=== PATIENT | female | born 1960 | race African-American/Black ===

== ENCOUNTER 2018-03-17 07:43 | Observation (INO) ==
[2018-03-17] MEDS ORDERED: Aspirin 325 MG Tablet PO ONE (08:06)
--- NOTE | 2018-03-17 08:11 | ED ---
HPI General Chief Complaint: Chest Pain Stated Complaint: chest pain/SOB Time Seen by Provider: 03/17/18 08:00 Source: patient Mode of arrival: ambulatory Limitations: no limitations History of Present Illness HPI narrative: 57-year-old female notes chest pain and higher blood pressure than usual over the past couple of days. She states she is also been fighting a cold and been using Mucinex for nasal congestion. She states she currently does not have a heart doctor. She states around 2013 she had a stress test and her last heart catheterization was probably about 10 years ago. She states her diabetes has been well controlled with her last sugar yesterday in the 130s. complaint: chest pain Complete Quality Measures for STEMI Alert Patients STEMI Alert: No Onset (ago): day(s) Duration: intermittent Pain location: left chest Severity: moderate Quality: aching Pain radiation: none Relieving factors: nothing Exacerbating factors: nothing Context: recent illness (congestion) Related Data Home Medications Medication Instructions Recorded Confirmed amlodipine 10 mg PO DAILY 03/17/18 03/17/18 aspirin [Aspir-81] 81 mg PO DAILY 03/17/18 03/17/18 carvedilol 25 mg PO BID 03/17/18 03/17/18 clonidine HCl 0.2 mg PO TID 03/17/18 03/17/18 metformin 500 mg PO DAILY 03/17/18 03/17/18 Allergies Allergy/AdvReac Type Severity Reaction Status Date / Time adenosine Allergy Severe unknown Verified 03/17/18 07:54 codeine Allergy Severe Nausea/Vomi Verified 03/17/18 07:54 ting enalaprilat Allergy Severe ANGIOEDEMA Verified 03/17/18 07:54 propranolol Allergy Severe RASH Verified 03/17/18 07:54 Review of Systems ROS: all other systems reviewed are negative [facility] Medical History Medical History Anxiety (Acute) Diabetes (Acute) HTN (hypertension) (Acute) Hiatal hernia (Acute) Surgical History Surgical History H/O carpal tunnel repair (Acute) H/O section (Acute) History of cardiac cath (Acute) Social History Social History Substance History: Active Abuse Second Hand Smoke Exposure: Yes Smoking Status: Former smoker Tobacco Type: Cigarettes How Often Do You Have a Drink Containing Alcohol: 2 to 3 times a week Recent Travel in [facility] within the Last 8 Weeks: No Recent Out of Country Travel within the Last 8 Weeks: No Substance Abuse Detail Marijuana: Substance Use Status: Active Route Used Substance Abuse: Inhalation Reason for Use: Get High Immunization History Tetanus Immunization: Unsure Hx Influenza Vaccine This Season: No Exam Narrative Exam Narrative: GENERAL: 57 y/o female in no apparent distress SKIN: Focused skin assessment warm/dry. HEAD: Atraumatic. Normocephalic. EYES: Pupils equal and round. No scleral icterus. No injection or drainage. ENT: No nasal bleeding or discharge. Mucous membranes pink and moist. Rhinorrhea noted NECK: Trachea midline. No JVD. CARDIOVASCULAR: Regular rate and rhythm. No murmur appreciated. RESPIRATORY: No accessory muscle use. Clear to auscultation. Breath sounds equal bilaterally. GASTROINTESTINAL: Abdomen soft, non-tender, nondistended. MUSCULOSKELETAL: No obvious deformities. No clubbing. No cyanosis. NEUROLOGICAL: Awake and alert. Motor grossly within normal limits. Normal speech. PSYCHIATRIC: Appropriate mood and affect; insight and judgment normal. Course Hospital Course: patient updated and agrees to [facility] observation Initial Documented Vital Signs Temperature 97.7 F 03/17/18 07:47 Pulse Rate 88 03/17/18 07:47 Respiratory Rate 16 03/17/18 07:47 Blood Pressure 212/101 H 03/17/18 07:47 Pulse Oximetry 98 03/17/18 07:47 Last Documented Vital Signs Temperature 97.7 F 03/17/18 07:47 Pulse Rate 58 L 03/17/18 09:46 Respiratory Rate 18 03/17/18 09:46 Blood Pressure 178/101 H 03/17/18 09:46 Pulse Oximetry 100 03/17/18 09:46 Medical Decision Making [facility] Narrative Medical decision making narrative: Will check blood work, chest x-ray, EKG and dose with aspirin nitroglycerin and reevaluate given risk factors Medical Screen Exam Complete: Yes Emergency Medical Condition: Yes Differential Diagnosis Differential Diagnosis: Musculoskeletal, pneumonia, atypical cardiac Lab Data Lab results reviewed: Yes I reviewed the patient's lab results. Result diagrams: 03/17/18 08:08 03/17/18 08:08 Lab Results 03/17/18 03/17/18 03/17/18 Range/Units 08:08 08:08 08:08 WBC 9.1 (4.0-11.0) th/mm3 RBC 5.68 H (4.00-5.30) mil/mm3 Hgb 15.2 (11.6-15.3) gm/dL Hct 45.3 (35.0-46.0) % MCV 79.7 L (80.0-100.0) fL MCH 26.7 L (27.0-34.0) pg MCHC 33.5 (32.0-36.0) % RDW 13.5 (11.6-17.2) % Plt Count 227 (150-450) th/mm3 MPV 10.3 (7.0-11.0) fL Neut % (Auto) 55.6 (16.0-70.0) % Lymph % (Auto) 30.6 (9.0-44.0) % [place] % (Auto) 10.4 H (0.0-8.0) % Eos % (Auto) 2.7 (0.0-4.0) % Baso % (Auto) 0.7 (0.0-2.0) % Neut # (Auto) 5.0 (1.8-7.7) th/mm3 Lymph # (Auto) 2.8 (1.0-4.8) th/mm3 [place] # (Auto) 0.9 (0.0-0.9) th/mm3 Eos # (Auto) 0.2 (0.0-0.4) th/mm3 Baso # (Auto) 0.1 (0.0-0.2) th/mm3 WBC Differential . Differential Comment Auto diff final PT 10.7 (9.8-11.6) sec INR 1.1 Ratio APTT 27.1 (24.3-30.1) sec Sodium 139 (136-145) meq/L Potassium 3.4 L (3.5-5.1) meq/L Chloride 104 (98-107) meq/L Carbon Dioxide 26.6 (21.0-32.0) meq/L Anion Gap 8 (5-15) meq/L BUN 9 (7-18) mg/dL Creatinine 0.62 (0.50-1.00) mg/dL Estimated GFR Greater than 89 (>89) mL/min Random Glucose 131 H (74-106) mg/dL Calcium 9.2 (8.5-10.1) mg/dL Magnesium 1.8 (1.5-2.5) mg/dL Total Bilirubin 0.4 (0.2-1.0) mg/dL AST 18 (15-37) U/L ALT 23 (10-53) U/L Alkaline Phosphatase 99 (45-117) U/L Total Creatine Kinase 89 (26-192) U/L Troponin I Less than 0.02 L (0.02-0.05) ng/mL Total Protein 8.1 (6.4-8.2) g/dL Albumin 3.7 (3.4-5.0) g/dL Imaging Data Attestation: I personally reviewed and interpreted this imaging study as follows : Radiologist's impression: Chest X-Ray 03/17/18 08:00 CONCLUSION: No acute cardiopulmonary abnormality is identified. Discharge Plan Discharge Disposition Patient Disposition: 30 Still Patient Discharge Condition Condition: Stable Discharge Details Diagnosis: Chest pain Physicians Team ED Provider: Gabi Murrell Primary Care Provider: Reji Ng Attending Provider: Jj Castellon Discharge Interventions Interventions: Vital Signs Last Done: 03/17/18 07:49 Status ED Status: Admitted Observation Patient
[2018-03-17 08:32] LABS: Baso # (Auto) 0.1 th/mm3 (0.0-0.2); Baso % (Auto) 0.7 % (0.0-2.0); Eos # (Auto) 0.2 th/mm3 (0.0-0.4); Eos % (Auto) 2.7 % (0.0-4.0); Hematocrit 45.3 % (35.0-46.0); Hemoglobin 15.2 gm/dL (11.6-15.3); Lymph # (Auto) 2.8 th/mm3 (1.0-4.8); Lymph % (Auto) 30.6 % (9.0-44.0); Mean Corpuscular HGB Conc 33.5 % (32.0-36.0); Mean Corpuscular Hemoglobin 26.7 pg (27.0-34.0); Mean Corpuscular Volume 79.7 fL (80.0-100.0); Mean Platelet Volume 10.3 fL (7.0-11.0); Mono # (Auto) 0.9 th/mm3 (0.0-0.9); Mono % (Auto) 10.4 % (0.0-8.0); Neut % (Auto) 55.6 % (16.0-70.0); Platelet Count 227 th/mm3 (150-450); Red Blood Count 5.68 mil/mm3 (4.00-5.30); Red Cell Distribution Width 13.5 % (11.6-17.2); White Blood Count 9.1 th/mm3 (4.0-11.0)
[2018-03-17 08:41] LABS: Activated Partial Thrombo Time 27.1 sec (24.3-30.1); INR 1.1 Ratio; Prothrombin Time 10.7 sec (9.8-11.6)
--- NOTE | 2018-03-17 08:46 | XR ---
EXAM DATE: 03/17/2018 8:32 AM EDT AGE/SEX: 57 years / Female INDICATIONS: Chest pain. Patient complains of headache, cough, and congestion. Low grade fever. CLINICAL DATA: This is the patient's initial encounter. Patient reports that signs and symptoms have been present for 4 - 6 days and indicates a pain score of 0/10. MEDICAL/SURGICAL HISTORY: None. None. COMPARISON: [facility] [place], CHEST SINGLE AP, 12/21/2014. . FINDINGS: Portable AP view of the chest demonstrates a normal-sized cardiac silhouette with calcification of th e aorta. EKG lines overlie the patient. Lungs are underinflated. No effusion, consolidation, or pneum othorax is identified. The bones and soft tissues demonstrate no acute abnormality. CONCLUSION: No acute cardiopulmonary abnormality is identified. Electronically signed by: Monico Sanchez MD 03/17/2018 8:45 AM EDT
[2018-03-17 08:56] LABS: Albumin 3.7 g/dL (3.4-5.0); Anion Gap 8 meq/L (5-15); Aspartate Aminotransferase 18 U/L (15-37); Blood Urea Nitrogen 9 mg/dL (7-18); Calcium 9.2 mg/dL (8.5-10.1); Carbon Dioxide 26.6 meq/L (21.0-32.0); Chloride 104 meq/L (98-107); Glomerular Filtration Rate Greater Than 89 mL/min (>89); Glucose,Random 131 mg/dL (74-106); Potassium 3.4 meq/L (3.5-5.1); Sodium 139 meq/L (136-145)
[2018-03-17 08:57] LABS: Alanine Aminotransferase 23 U/L (10-53)
[2018-03-17 09:01] LABS: Alkaline Phosphatase 99 U/L (45-117); Total Protein 8.1 g/dL (6.4-8.2)
[2018-03-17 09:04] LABS: Creatine Kinase 89 U/L (26-192)
[2018-03-17 09:17] LABS: Magnesium 1.8 mg/dL (1.5-2.5)
[2018-03-17] MEDS ORDERED: ALPRAZolam 0.25 MG Tablet PO PRN (11:12)
--- NOTE | 2018-03-17 11:24 | P.HPCA ---
History of Present Illness Primary Care Physician: Reji Ng MD Chief Complaint: Chest pain and high blood pressure History of Present Illness: This is a 57-year-old female with history of hypertension, hyperlipidemia, diabetes that presents to ED with complaint of chest pain and high blood pressure. Patient states that she has had a yellowish color productive cough for 4-5 days and began taking decongestants. She thinks that made her blood pressure higher. States hypertension was controlled with the current medications prior to starting Mucinex. States that she did not take her blood pressure medicines this morning. She believes she may have had a fever at one point. She describes a discomfort in her chest as a left-sided ache that lasts 5-10 minutes and usually brought on with certain movements or coughing. Denies associated shortness of breath, nausea, or diaphoresis. Denies sick contacts. Denies history of CAD. She has had stress test in the past, most recently being in 2015 which was suboptimal. Lexiscan was recommended however patient declined. Patient quit smoking cigarettes 10 years ago but prior that she smoked three- quarter pack a day for 20 years. Has occasional alcohol. Uses marijuana occasionally. States that her father had a CABG in his 70s. - Diagnosis (1) Chest pain (2) Hypertension (3) Diabetes (4) Hyperlipidemia Review of Systems General: Patient denies chills and recent travel. When of subjective fever. HEENT: Patient denies headache, sore throat, difficulty swallowing. Cardiovascular: Has the chest discomfort as mentioned above. Denies sensation of heart beating rapidly or irregularly. No syncope. Denies diaphoresis. Respiratory: Patient is a yellowish color productive cough. Denies shortness of breath or inspirational chest discomfort. Denies wheezing or hemoptysis. GI: Patient denies nausea, vomiting, diarrhea, abdominal pain, bloody stools. Musculoskeletal: Patient denies joint pain or edema. Denies calf pain or edema. Neurovascular: Patient denies numbness, tingling, weakness in extremities. Denies headache. Endocrine: Denies polyuria and polydipsia. Hematologic: Denies easy bruising. Skin: Denies rash or itching. PMFSH - History History Provided By: Patient - Medical History Medical History: Medical History (Last Reviewed 03/17/18 @ 08:08 by Gabi Murrell MD) Anxiety Diabetes HTN (hypertension) Hiatal hernia - Surgical History Surgical History: Surgical History (Last Updated 03/17/18 @ 08:15 by Ivelisse Butler RN) H/O carpal tunnel repair H/O section History of cardiac cath - Tobacco History Second Hand Smoke Exposure: Yes Smoking Status: Former smoker Tobacco Type: Cigarettes - Alcohol History How Often Do You Have a Drink Containing Alcohol: 2 to 3 times a week - Substance Use History Substance History: Active Abuse - Substance Use Type Marijuana Status: Active Route Used: Inhalation Reason for Use: Get High - Travel History Recent Travel in the [place] Within the Last 8 Weeks: No Recent Travel Out of the Country Within the Last 8 Weeks: No - Immunization History Tetanus Immunization: Unsure Hx Influenza Vaccine This Season: No Medications and Allergies Active Medications: Active Medications Albuterol (Duoneb Neb (Prn)) 1 ampul NEB Q4HR NEB PRN PRN Reason: SHORTNESS OF BREATH/WHEEZING Alprazolam (Xanax) 0.25 mg PO Q8H PRN PRN Reason: ANXIETY Amlodipine Besylate (Norvasc) 10 mg PO DAILY [facility] Aspirin (Ecotrin) 81 mg PO DAILY [facility] Aspirin (Aspirin) 325 mg PO DAILY [facility] Clonidine HCl (Catapres) 0.2 mg PO TID [facility] Insulin Human Regular (Novolin R Correctional Sugar Inj) 0 units SQ ACHS ZIGGY; Protocol Ketorolac Tromethamine (Toradol Inj) 30 mg IV.PUSH ONCE ONE Stop: 03/17/18 11:16 Non-Formulary Medication (Carvedilol [Carvedilol]) 25 mg PO BID ZIGGY Ondansetron HCl (Zofran Inj) 4 mg IV.PUSH Q6H PRN PRN Reason: NAUSEA Pantoprazole Sodium (Protonix) 40 mg PO DAILY [facility] Sodium Chloride (Ns Flush) 2 ml IV.FLUSH UNSCH PRN PRN Reason: FLUSH AFTER USING IV ACCESS Sodium Chloride (Ns Flush) 2 ml IV.FLUSH BID ZIGGY Sodium Chloride (Ns Flush) 2 ml IV.FLUSH PRN PRN PRN Reason: FLUSH AFTER USING IV ACCESS Allergies Allergy/AdvReac Type Severity Reaction Status Date / Time adenosine Allergy Severe unknown Verified 03/17/18 07:54 codeine Allergy Severe Nausea/Vomi Verified 03/17/18 07:54 ting enalaprilat Allergy Severe ANGIOEDEMA Verified 03/17/18 07:54 propranolol Allergy Severe RASH Verified 03/17/18 07:54 Home Medications Medication Instructions Recorded Confirmed Type amlodipine 10 mg PO DAILY 03/17/18 03/17/18 History aspirin [Aspir-81] 81 mg PO DAILY 03/17/18 03/17/18 History carvedilol 25 mg PO BID 03/17/18 03/17/18 History clonidine HCl 0.2 mg PO TID 03/17/18 03/17/18 History metformin 500 mg PO DAILY 03/17/18 03/17/18 History Exam Vital signs: Vital Signs 03/17/18 07:47 03/17/18 08:03 03/17/18 08:04 Temperature 97.7 F Pulse Rate 88 74 Respiratory Rate 16 25 H Blood Pressure 212/101 H 187/106 H Pulse Oximetry 98 100 100 03/17/18 09:46 Temperature Pulse Rate 58 L Respiratory Rate 18 Blood Pressure 178/101 H Pulse Oximetry 100 Intake & Output 03/16/18 03/17/18 03/17/18 18:59 06:59 18:59 Weight 75.75 kg Narrative: GENERAL: This is a well-nourished, well-developed patient, in no apparent distress. Patient speaks in clear complete sentences. Patient is pleasant. HEENT: Head is atraumatic and normocephalic. Neck is supple without lymphadenopathy and trachea is midline. No JVD or carotid bruits. CARDIOVASCULAR: Regular rate and rhythm without murmurs, gallops, or rubs. RESPIRATORY: Clear to auscultation. Breath sounds equal bilaterally. No wheezes , rales, or rhonchi. Chest wall is tender reproducing the discomfort that brought her to the ED.. No use of accessory muscles. GASTROINTESTINAL: Abdomen is nontender, nondistended. Abdomen soft. No obvious pulsatile mass or bruit. No CVA tenderness. Strong femoral pulses bilaterally. Normal bowel sounds in all quadrants. MUSCULOSKELETAL: Patient is moving upper and lower extremities freely. No calf tenderness or edema, no Homans sign. Strong pulses in upper and lower extremities. NEUROLOGICAL: Patient is alert and oriented. Cranial nerves 2-12 are grossly intact. No focal deficits and speech is clear. SKIN: No rash and turgor is normal. Results 03/17/18 08:08 03/17/18 08:08 Cardiac Enzymes 03/17/18 Range/Units 08:08 AST 18 (15-37) U/L Troponin I Less than 0.02 L (0.02-0.05) ng/mL Coagulation 03/17/18 Range/Units 08:08 PT 10.7 (9.8-11.6) sec APTT 27.1 (24.3-30.1) sec CBC 03/17/18 Range/Units 08:08 WBC 9.1 (4.0-11.0) th/mm3 RBC 5.68 H (4.00-5.30) mil/mm3 Hgb 15.2 (11.6-15.3) gm/dL Hct 45.3 (35.0-46.0) % Plt Count 227 (150-450) th/mm3 Neut # (Auto) 5.0 (1.8-7.7) th/mm3 Lymph # (Auto) 2.8 (1.0-4.8) th/mm3 [place] # (Auto) 0.9 (0.0-0.9) th/mm3 Eos # (Auto) 0.2 (0.0-0.4) th/mm3 Baso # (Auto) 0.1 (0.0-0.2) th/mm3 Comprehensive Metabolic Panel 03/17/18 Range/Units 08:08 Sodium 139 (136-145) meq/L Potassium 3.4 L (3.5-5.1) meq/L Chloride 104 (98-107) meq/L Carbon Dioxide 26.6 (21.0-32.0) meq/L BUN 9 (7-18) mg/dL Creatinine 0.62 (0.50-1.00) mg/dL Calcium 9.2 (8.5-10.1) mg/dL AST 18 (15-37) U/L ALT 23 (10-53) U/L Alkaline Phosphatase 99 (45-117) U/L Total Protein 8.1 (6.4-8.2) g/dL Albumin 3.7 (3.4-5.0) g/dL Intake and Output 03/16/18 03/17/18 03/17/18 22:59 06:59 14:59 Other: Weight 75.75 kg Patient Weight 03/18/18 06:59 Weight 75.75 kg EKG interpretations - EKG EKG shows: sinus rhythm (Initial EKG is sinus rhythm without significant ST segment depressions or elevations.) Caprini VTE Risk Assessment Caprini VTE Risk Assessment: No/Low Risk (score <= 1) Caprini Risk Assessment Model: Point Value = 1 Point Value = 2 Point Value = 3 Point Value = 5 Age 41-60 Minor surgery BMI > 25 kg/m2 Swollen legs Varicose veins or History of unexplained or recurrent spontaneous Oral contraceptives or hormone replacement Sepsis (< 1 month) Serious lung disease, including pneumonia (< 1 month) Abnormal pulmonary function Acute myocardial infarction Congestive heart failure (< 1 month) History of inflammatory bowel disease Medical patient at bed rest Age 61-74 Arthroscopic surgery Major open surgery (> 45 min) Laparoscopic surgery (> 45 min) Malignancy Confined to bed (> 72 hours) Immobilizing plaster cast Central venous access Age >= 75 History of VTE Family history of VTE Factor V Leiden Prothrombin [id number] Lupus anticoagulant Anticardiolipin antibodies Elevated serum homocysteine Heparin-induced thrombocytopenia Other congenital or acquired thrombophilia Stroke (< 1 month) Elective arthroplasty Hip, pelvis, or leg fracture Acute spinal cord injury (< 1 month) Prophylaxis Regimen: Total Risk Factor Score Risk Level Prophylaxis Regimen 0-1 Low Early ambulation 2 Moderate Order ONE of the following: *Sequential Compression Device (SCD) *Heparin 5000 units SQ BID 3-4 Higher Order ONE of the following medications: *Heparin 5000 units SQ TID *Enoxaparin/Lovenox 40 mg SQ daily (WT < 150 kg, CrCl > 30 mL/min) *Enoxaparin/Lovenox 30 mg SQ daily (WT < 150 kg, CrCl > 10-29 mL/min) *Enoxaparin/Lovenox 30 mg SQ BID (WT < 150 kg, CrCl > 30 mL/min) AND/OR *Sequential Compression Device (SCD) 5 or more Highest Order ONE of the following medications: *Heparin 5000 units SQ TID (Preferred with Epidurals) *Enoxaparin/Lovenox 40 mg SQ daily (WT < 150 kg, CrCl > 30 mL/min) *Enoxaparin/Lovenox 30 mg SQ daily (WT < 150 kg, CrCl > 10-29 mL/min) *Enoxaparin/Lovenox 30 mg SQ BID (WT < 150 kg, CrCl > 30 mL/min) AND *Sequential Compression Device (SCD) Assessment and Plan - Assessment (1) Chest pain Code(s): R07.9 - Chest pain, unspecified Status: Acute (2) Hypertension Code(s): I10 - Essential (primary) hypertension Status: Acute (3) Diabetes Code(s): E11.9 - Type 2 diabetes mellitus without complications Status: Acute (4) Hyperlipidemia Code(s): E78.5 - Hyperlipidemia, unspecified Status: Acute - Plan * Chest pain: Patient will continue to have serial cardiac enzymes and EKGs for ruling out purposes. She will be seen by Dr. Jj Castellon of cardiology in the chest pain center and afterwards further plan will be decided. Patient be given Toradol. Patient will need follow-up with her PCP. Return to ED for interval issues. * Hypertension: States she did not take her medications but they generally worked to control her blood pressure until taking Mucinex. We will restart her medications. Advised not to take decongestants. * Diabetes: Sliding scale insulin coverage while in chest pain center. Diabetic diet. Resume medication at discharge. * Hyperlipidemia: Patient is currently not taking a statin. This needs be discussed with her PCP as she should be on statin therapy with history of hyperlipidemia anymore so with history of diabetes as well. Patient is stable at this time. She is agreeable to this plan. (1) Chest pain Qualifiers: Chest pain type: unspecified Qualified Code(s): R07.9 - Chest pain, unspecified
[2018-03-17 12:27] LABS: Creatine Kinase 80 U/L (26-192)
[2018-03-17] MEDS: amLODIPine 10 MG Tablet PO SCH (12:54)
[2018-03-17] MEDS: Carvedilol 12.5 MG Tablet PO SCH ×2 (12:55→22:39)
[2018-03-17] MEDS: Insulin NovoLIN Regular Correctional Sugar Inj SQ SCH ×3 (12:56→22:39)
[2018-03-17] MEDS ORDERED: Ketorolac Inj 30 MG/ML (IVP) Vial IV.PUSH ONE (13:00)
--- NOTE | 2018-03-17 14:27 | ECG ---
Date Performed: 03/17/2018 Time Performed: 11:25:12 PTAGE: 57 years EKG: Sinus rhythm NORMAL ECG PREVIOUS TRACING : 03/17/2018 07.58 Since previous tracing, no significant change noted DOCTOR: Jj Castellon Interpretating Date/Time 03/17/2018 14:27:08
[2018-03-17 16:11] LABS: Creatine Kinase 69 U/L (26-192)
--- NOTE | 2018-03-17 21:31 | ECG ---
Date Performed: 03/17/2018 Time Performed: 07:58:15 PTAGE: 57 years EKG: Sinus rhythm NORMAL ECG Compared to PREVIOUS TRACING , now in sinus rhythm DOCTOR: Frank Moon Interpretating Date/Time 03/17/2018 21:30:30
--- NOTE | 2018-03-18 07:54 | ECG ---
Date Performed: 03/17/2018 Time Performed: 15:12:30 PTAGE: 57 years EKG: Sinus rhythm NORMAL ECG Since PREVIOUS TRACING , no significant change noted PREVIOUS TRACIN03/17/2018 11.25 DOCTOR: Kathia Waller Interpretating Date/Time 03/24/2018 08:37:02
--- NOTE | 2018-03-18 07:58 | ECG ---
Date Performed: 03/17/2018 Time Performed: 16:49:12 PTAGE: 57 years EKG: ECTOPIC ATRIAL BRADYCARDIA ABNORMAL RHYTHM ECG Since PREVIOUS TRACING , no significant change noted PREVIOUS TRACIN03/17/2018 15.12 DOCTOR: Kathia Waller Interpretating Date/Time 03/18/2018 07:57:52
[2018-03-18] MEDS: Insulin NovoLIN Regular Correctional Sugar Inj SQ SCH ×2 (08:26→12:34)
[2018-03-18] MEDS ORDERED: Aspirin 325 MG Tablet PO SCH (09:00)
[2018-03-18] MEDS ORDERED: Regadenoson Inj 0.4 MG/5 ML Syringe IV.PUSH ONE (10:15)
[2018-03-18] MEDS: amLODIPine 10 MG Tablet PO SCH (11:41)
[2018-03-18] MEDS: Carvedilol 12.5 MG Tablet PO SCH (11:42)
--- NOTE | 2018-03-18 11:45 | NM ---
EXAM DATE: 03/18/2018 11:42 AM EDT AGE/SEX: 57 years / Female INDICATIONS:Angina. . Left sided chest pain. CLINICAL DATA: This is the patient's initial encounter. Patient reports that signs and symptoms have been present for 1 day and indicates a pain score of 2/10. MEDICAL/SURGICAL HISTORY: Hypertension. Diabetes mellitus type II. Inguinal hernia repair. Ce sarean section. Cardiac cath. COMPARISON: No prior exams available for comparison. DOSE: 8.3 mCi Tc 99m Myoview at rest 27.4 mCi [id number] at stress 0.4 mg Lexiscan STRESS SYMPTOMS: Shortness of breath, stomach cramping, heat flash. EJECTION FRACTION: 68 % TECHNIQUE: The patient underwent pharmacologic stress with infusion of prescribed dose. Continuous ECG tracing was monitored during stress. Gated SPECT imaging was performed after stress and conventi onal SPECT imaging was performed at rest. The examination was performed on a SPECT/CT scanner, both attenuation and non-corrected datasets were reviewed. FINDINGS: Distribution: The maximum perfused segment at stress is in the septal wall. Perfusion Study: The pattern of perfusion at stress is within normal limits. Gated Study: There are intact wall motion and wall thickening without hypokinetic or dyskinetic segm ents. The ejection fraction is calculated at 68%. RISK CATEGORY: Low (<1% Annual Motality Rate) CONCLUSION: 1. Unremarkable myocardial perfusion examination. Electronically signed by: Mayco Saini MD 03/18/2018 11:43 AM EDT
[2018-03-18 12:16] VITALS: RESP 18; TEMP 98.8
[2018-03-18 12:59] VITALS: BP 165/95; PULSE 66; O2SAT 94
--- NOTE | 2018-03-18 17:19 | TR ---
Date Performed: 03/18/2018 Time Performed: 10:08:43 DOCTOR: Kathia Waller DRUG LIST: CLINICAL HISTORY: REASON FOR TEST: REASON FOR ENDING: OBSERVATION: CONCLUSION: Lexiscan stress test was performed under standard four minute protocol. Radionuclid e was injected one minute prior to ending the test. No electrocardiographic abormalities were present to suggest ischemia. Nuclear imaging and interpretation are pending. COMMENTS: no ischemia
== END 2018-03-18 13:28 | disposition home or self-care (01) ==
LOC: NEPE 07:43 → NEPFCDU 07:43 → NEDA 07:43 → NEPFCDU 15:19
PROVIDERS: ADMIT Internal Medicine Cardiovascular Disease; ATTEND Internal Medicine Cardiovascular Disease